=== PATIENT | male | born 1960 | race Caucasian/White ===

== ENCOUNTER 2017-10-15 07:10 | Emergency (ER) | payer OTHER ==
[~2017-10-15] VITALS: Ht 175.3 cm; Wt 82.4 kg
[~2017-10-15 07:10] MED LIST: CALCIUM 500 +1 EACH PO; THERAGRAN1 TABLET PO
[2017-10-15 07:43] LABS: HEMATOCRIT 43.9 % (38.0-50.0); MCH 31.7 PG (29.0-34.0); MCHC 34.6 G/DL (30.0-36.0); MCV 91.5 FL (86-99); MEAN PLAT.VOLUME 10.9 uM^3 (9.0-12.4); PLATELET COUNT 243 K/uL (156-360); RBC DIS.WIDTH-CV 12.6 % (11.8-14.6); RBC DIS.WIDTH-SD 42.2 % (39-53); WHITE BLOOD COUNT 10.9 K/uL (4.1-10.2)
[2017-10-15 07:52] LABS: CHLORIDE 106 mEq/L (99-109); POTASSIUM 3.9 mEq/L (3.7-5.4); SODIUM 137 mEq/L (136-147)
[2017-10-15 07:54] LABS: GLUCOSE 122 mg/dL (70-99)
[2017-10-15 07:55] LABS: ANION GAP 6 MEQ/L (2-14)
[2017-10-15 07:56] LABS: TOTAL BILIRUBIN 0.8 mg/dL (0.0-1.0)
[2017-10-15 07:56] LABS: ADD MIUA? NO; BILIRUBIN NEGATIVE; BLOOD NEGATIVE; COLOR YELLOW ((YELLOW)); GLUCOSE (STRIP) NEGATIVE; KETONES NEGATIVE; LEUKOCYTES NEGATIVE; NITRITE NEGATIVE; PROTEIN (STRIP) NEGATIVE; SPECIFIC GRAVITY 1.015 (1.000-1.030); UROBILINOGEN 0.2 MG/DL (0.2-1.0)
[2017-10-15 07:57] LABS: ALKALINE PHOSPHATASE 61 IU/L (3-129)
[2017-10-15 07:58] LABS: GFR ESTIMATE (CALCULATED) > 59 mL/min/
[2017-10-15 07:59] LABS: UREA NITROGEN (BUN) 9 mg/dL (9-23)
[2017-10-15 08:01] LABS: LIPASE 30 U/L (1.0-51.0)
[2017-10-15] MEDS ORDERED: ZOFRAN ODT8 MG PO (09:34)
[2017-10-15] MEDS ORDERED: BENTYL20 MG PO (09:34)
[2017-10-15 09:50] VITALS: BP 158/102
== END 2017-10-15 09:51 | disposition home or self-care (01) ==
LOC: EME 07:10
PROVIDERS: Physician Assistant
DX: K80.20 Calculus of gallbladder without cholecystitis without obstruction (principal); K50.90 Crohn's disease, unspecified, without complications
CPT/HCPCS: 74177; 80053; 81003; 83690; 85027; 99281; 99284; J7040

== ENCOUNTER 2017-10-20 15:42 | Inpatient (IN) | payer OTHER ==
[~2017-10-20] VITALS: Ht 175.3 cm; Wt 79.3 kg
[~2017-10-20 15:42] MED LIST changes: +BENTYL20 MG PO; +ZOFRAN ODT8 MG PO
[2017-10-20 16:17] VITALS: BP 171/94
[2017-10-20 18:17] LABS: METH RESISTANT S AUREUS PCR NEGATIVE (NEGATIVE)
[2017-10-20 18:21] LABS: PROBE CHECK PASS; SPECIMEN PROCESSING CONTROL PASS
[2017-10-20 21:54] VITALS: BP 132/69
[2017-10-21] VITALS (7 sets, daily range): BP systolic 109–143; BP diastolic 59–77
[2017-10-21 05:54] LABS: HEMATOCRIT 37.5 % (38.0-50.0); MCH 31.3 PG (29.0-34.0); MCHC 34.1 G/DL (30.0-36.0); MCV 91.7 FL (86-99); PLATELET COUNT 177 K/uL (156-360); RBC DIS.WIDTH-SD 41.1 % (39-53); RED BLOOD COUNT 4.09 M/uL (4.00-5.50); WHITE BLOOD COUNT 13.4 K/uL (4.1-10.2)
[2017-10-21 06:15] LABS: ALKALINE PHOSPHATASE 69 IU/L (3-129); ANION GAP 6 MEQ/L (2-14); CHLORIDE 106 MEQ/L (99-109); GFR ESTIMATE (CALCULATED) > 59 mL/min/; GLUCOSE 135 mg/dL (70-99); MAGNESIUM 1.6 mg/dl (1.3-2.7); SAMPLE HEMOLYSIS CHECK 0; SAMPLE ICTERIC CHECK 0; SAMPLE LIPEMIA CHECK 0; SODIUM 139 MEQ/L (136-147); TOTAL BILIRUBIN 0.6 MG/DL (0.0-1.0); UREA NITROGEN (BUN) 11 mg/dL (9-23)
[2017-10-21 06:18] LABS: POTASSIUM 4.8 MEQ/L (3.7-5.4)
[2017-10-22 05:35] LABS: HEMATOCRIT 37.2 % (38.0-50.0); MCH 31.2 PG (29.0-34.0); MCHC 33.3 G/DL (30.0-36.0); MCV 93.5 FL (86-99); MEAN PLAT.VOLUME 11.1 uM^3 (9.0-12.4); PLATELET COUNT 171 K/uL (156-360); RBC DIS.WIDTH-CV 12.3 % (11.8-14.6); RBC DIS.WIDTH-SD 42.6 % (39-53); RED BLOOD COUNT 3.98 M/uL (4.00-5.50)
[2017-10-22 06:02] LABS: ALKALINE PHOSPHATASE 63 IU/L (3-129); DIRECT BILIRUBIN 0.2 mg/dL (0.0-0.3)
[2017-10-22 06:03] LABS: TOTAL BILIRUBIN 0.8 MG/DL (0.0-1.0)
[2017-10-22 07:48] VITALS: BP 135/79
[2017-10-22 14:49] VITALS: BP 136/73
[2017-10-23 00:13] VITALS: BP 146/87
[2017-10-23 08:00] VITALS: BP 144/87
[2017-10-23] MEDS ORDERED: HYDROCODON-ACE1 EAC7 PO (08:12)
== END 2017-10-23 10:06 | disposition home or self-care (01) | DRG 415 ==
LOC: SDC 15:42 → ENRESERV 19:19 → 5EAST 19:19 → 2SOUTH 19:19 → ENRESERV 19:32 → 5EAST 20:45 → ENPENDDIS 10-23 → 5EAST 10-23 10:06
PROVIDERS: Physician Assistant; Surgery
DX: K80.12 Calculus of gallbladder with acute and chronic cholecystitis without obstruction (principal); K50.90 Crohn's disease, unspecified, without complications; E66.3 Overweight; Z68.26 Body mass index [BMI] 26.0-26.9, adult; Z86.14 Personal history of Methicillin resistant Staphylococcus aureus infection; I10 Essential (primary) hypertension; K66.0 Peritoneal adhesions (postprocedural) (postinfection); Z53.31 Laparoscopic surgical procedure converted to open procedure; K91.71 Accidental puncture and laceration of a digestive system organ or structure during a digestive system procedure; Y83.8 Other surgical procedures as the cause of abnormal reaction of the patient, or of later complication, without mention of misadventure at the time of the procedure; Y92.234 Operating room of hospital as the place of occurrence of the external cause
CPT/HCPCS: 74300; 80053; 80076; 83735; 84100; 85027; 87641; 88304; 94799; J0131; J0330; J1100; J1170; J1885; J2405; J2710; J2765; J3010; J3480; S0020; S0074